=== PATIENT | female | born 1940 ===

== ENCOUNTER 2023-07-27 09:04 | Outpatient (CLI) | payer MEDICARE, BC | END 2023-07-27 09:05 | disposition home or self-care (01) | LOC: CSHSPEC 09:04 | PROVIDERS: ATTEND Family Medicine | DX: M47.26 Other spondylosis with radiculopathy, lumbar region (principal); M43.9 Deforming dorsopathy, unspecified; M84.48XA Pathological fracture, other site, initial encounter for fracture | CPT/HCPCS: 72148 ==